=== PATIENT | male | born 1945 | race Two or more races ===

== ENCOUNTER → 2019-01-07 06:00 | Outpatient (CLI) | payer OTHER ==
[~2019-01-07 06:00] MED LIST: CLONAZEPAM2 M1 PO; COZAAR100 MG PO; DEMADEX10 MG PO; GLUCOPHAGE XR750 MG PO; TRICOR145 MG PO; ZANTAC150 M3 PO; ZIAC 2.5-6.251 EACH PO; ZOCOR40 MG PO
== END | disposition home or self-care (01) ==
LOC: LAB 06:00 → ADM 07:15 → EDSTATUS 01-12 07:15 → CIR.AMB 01-12 07:15
DX: K80.10 Calculus of gallbladder with chronic cholecystitis without obstruction (principal); K43.2 Incisional hernia without obstruction or gangrene; K42.9 Umbilical hernia without obstruction or gangrene; Z01.810 Encounter for preprocedural cardiovascular examination; Z01.812 Encounter for preprocedural laboratory examination

== ENCOUNTER 2019-01-14 13:01 | Emergency (ER) | payer OTHER ==
[~2019-01-14] VITALS: Ht 172.7 cm; Wt 81.6 kg
== END 2019-01-14 19:35 | disposition home or self-care (01) ==
LOC: ER 13:01 → CPU-OBS 14:16 → ER 19:35
DX: R00.1 Bradycardia, unspecified (principal); S30.0XXA Contusion of lower back and pelvis, initial encounter; S40.022A Contusion of left upper arm, initial encounter; W01.198A Fall on same level from slipping, tripping and stumbling with subsequent striking against other object, initial encounter; Y93.89 Activity, other specified; Y92.231 Patient bathroom in hospital as the place of occurrence of the external cause; Y99.8 Other external cause status